=== PATIENT | male | born 1960 | race Caucasian/White ===

== ENCOUNTER 2018-10-18 09:26 | Day surgery (SDC) | payer BC ==
[~2018-10-18 09:26] MED LIST: Lactated Ringers 1,000 ML IV SCH
--- NOTE | 2018-10-18 10:21 | PCM.PREANE ---
Preanesthetic Assessment - Procedure Proposed Procedure: colonoscopy - Anesthesia/Transfusion/Family Hx Anesthesia History: Prior Anesthesia Without Reaction Family History of Anesthesia Reaction: No Transfusion History: No Prior Transfusion(s) - Review of Systems General: No Symptoms Pulmonary: No Symptoms Cardiovascular: No Symptoms Gastrointestinal: No Symptoms Neurological: No Symptoms Other: Reports: None - Physical Assessment NPO Status Date: 10/17/18 Height: 5 ft 5 in Weight: 71.668 kg ASA Class: 2 Mental Status: Alert & Oriented x3 Airway Class: Mallampati = 2 ROM/Head Extension: Full Lungs: Clear to Auscultation, Normal Respiratory Effort Cardiovascular: Regular Rate, Regular Rhythm - Allergies Allergies/Adverse Reactions: Allergies Allergy/AdvReac Type Severity Reaction Status Date / Time No Known Allergies Allergy Verified 10/14/18 10:27 - Blood Blood Available: No - Anesthesia Plan Pre-Op Medication Ordered: None - Acknowledgements Anesthesia Type Planned: General Anesthesia, MAC Pt an Appropriate Candidate for the Planned Anesthesia: Yes Alternatives and Risks of Anesthesia Discussed w Pt/Guardian: Yes Pt/Guardian Understands and Agrees with Anesthesia Plan: Yes Additional Comments: PMH: asthma PLAN: mac/tiva PreAnesthesia Questionnaire HEENT History: Reports: Allergic Rhinitis Cardiovascular History: Reports: None Respiratory History: Reports: Asthma Other Respiratory History: mild asthma Gastrointestinal History: Reports: Colon Polyp, Hemorrhoids Genitourinary History: Reports: None [employer] History: Musculoskeletal History: Reports: Fracture Other Musculoskeletal History: fx wrist as a child Neurological History: Reports: None Psychiatric History: Reports: None Endocrine/Metabolic History: Reports: None Hematologic History: Reports: None Immunologic History: Reports: None Oncologic (Cancer) History: Reports: None Dermatologic History: Reports: None - Past Surgical History Head Surgeries/Procedures: Reports: None HEENT Surgical History: Reports: LASIK, Naso-Sinus Surgery Cardiovascular Surgical History: Reports: None Respiratory Surgical History: Reports: None GI Surgical History: Reports: Cholecystectomy, Colonoscopy, Other (See Below) Other GI Surgeries/Procedures: hemorrhoidectomy Female Surgical History: Male Surgical History: Reports: None Endocrine Surgical History: Reports: None Neurological Surgical History: Reports: None Musculoskeletal Surgical History: Reports: None Oncologic Surgical History: Reports: None Dermatological Surgical History: Reports: None - SUBSTANCE USE Smoking Status *Q: Never Smoker Recreational Drug Use History: No - HOME MEDS Home Medications: Home Meds Fluticasone Propionate [Flonase Allergy Relief] 1 - 2 spray NASBOTH DAILY PRN [History] Ipratropium/Albuterol Sulfate [Combivent Respimat 20-100 Mcg] 1 spray INH ASDIRECTED PRN 01/28/16 [History] Terbinafine HCl [Lamisil] 250 mg PO DAILY 10/14/18 [History] - CURRENT (IN HOUSE) MEDS Current Meds: Current Medications Lactated Ringer's (Ringers, Lactated) 1,000 mls @ 125 mls/hr IV ASDIRECTED RONALD
[2018-10-18] MEDS ORDERED: Midazolam 1 MG/ML 2 ML SDV ONE (10:52)
[2018-10-18] MEDS ORDERED: fentaNYL 100 MCG/2 ML SDV ONE (10:52)
[2018-10-18] MEDS ORDERED: Lidocaine 2% 5 ML SDV ONE (10:52)
[2018-10-18] MEDS ORDERED: Propofol 200 MG/20 ML SDV ONE (10:54)
--- NOTE | 2018-10-18 12:13 | PCM.OPNOTE ---
- General Post-Op/Procedure Note Date of Surgery/Procedure: 10/18/18 Operative Procedure(s): colonoscopy w bx Findings: see dict [id number] Pre Op Diagnosis: hx of colon polyp Post-Op Diagnosis: Same Anesthesia Technique: Moderate Sedation Primary Surgeon: Hemal Bajwa Pathology: sessile polyps at distance 70cm, 35cm and rectum, all 2 - 4 mm, cold bx forcept removal Complications: None Condition: Good
--- NOTE | 2018-10-18 12:37 | PCM.POSTAN ---
POST ANESTHESIA ASSESSMENT - MENTAL STATUS Mental Status: Alert, Oriented - RESPIRATORY Respiratory Status: Respiratory Rate WNL, Airway Patent, O2 Saturation Stable - CARDIOVASCULAR CV Status: Pulse Rate WNL, Blood Pressure Stable - GASTROINTESTINAL GI Status: No Symptoms - POST OP HYDRATION Hydration Status: Adequate & Stable
--- NOTE | 2018-10-18 13:38 | PCM48HPAN ---
Post Anesthesia Note - EVALUATION WITHIN 48HRS OF ANESTHETIC Vital Signs in Normal Range: Yes Patient Participated in Evaluation: Yes Respiratory Function Stable: Yes Airway Patent: Yes Cardiovascular Function Stable: Yes Hydration Status Stable: Yes Pain Control Satisfactory: Yes Nausea and Vomiting Control Satisfactory: Yes Mental Status Recovered: Yes Resp Rate: 12
[2018-10-18 14:56] VITALS: BP 103/63
--- NOTE | 2018-10-18 19:10 | OR ---
SURGEON: Hemal Bajwa MD DATE OF PROCEDURE: 10/18/2018 PREOPERATIVE DIAGNOSIS: History of colon polyp. POSTOPERATIVE DIAGNOSIS: Diverticulosis and colon polyp. PROCEDURE PERFORMED: Colonoscopy with biopsy. DESCRIPTION OF PROCEDURE: The patient was taken to the endoscopy room. A time out was called, patient identified, and procedure identified. Diprivan was then administrated. Patient went from awake to sleep, hearing doctor talking or door closing is normal. Perineum inspection and digital examination were then performed. A well- lubricated colonoscope was gently inserted through the rectum, advanced past the rectosigmoid junction, the descending colon, splenic flexure, transverse colon, hepatic flexure, ascending colon, arrived to the cecum. Cecum was identified as dictated in the finding. Then the scope was carefully withdrawn while attention was paid to the mucosal surface for any abnormality. Air will be sucked out during the scope withdrawal. At the rectum, retroflexed to examine any rectal diseases, fistula or hemorrhoids. During mucosal examination, biopsy performed. Patient tolerated procedure well. There were no intraoperative complications, and Dr. Bajwa was present throughout the whole procedure. FINDINGS: 1. The patient is easily sedated with [employer]ESP[employer] and Diprivan. The patient is soundly snoring. 2. Bowel prep is average with some liquid stool, no semi-formed stool. 3. Colon is pretty straight forward. Cecum indicated by ileocecal fold, one- to-one indentation, appendiceal orifice. Light emittance is not observed. Mucosa examined upon scope pulling out and the patient has mild diverticulosis concentrated on the left colon, a little bit on the right colon, and no signs or symptoms of diverticulitis. No inflammation. The patient has three polyps; all of them are very small like 3-4 mm one is at distance 70 cm, one is at distance of 35 cm, and one is at the rectum, they are all removed with biopsy forceps and other than that, no nodule, mass, growth, inflammation, stricture, ulceration, AV malformation, bleeding, none of those. The patient would benefit from repeat colonoscopy in three years from today because history of colon polyp and also father has colon cancer or if clinically indicated otherwise or if the polyp pathology indicated otherwise. BRIANNA / ALLEGRA /[id number] SP
== END 2018-10-18 14:15 | disposition home or self-care (01) ==
LOC: MW.SDS 09:26
PROVIDERS: ATTEND Surgery
DX: Z12.11 Encounter for screening for malignant neoplasm of colon (principal); D12.4 Benign neoplasm of descending colon; K63.5 Polyp of colon; K62.1 Rectal polyp; K57.30 Diverticulosis of large intestine without perforation or abscess without bleeding; J45.30 Mild persistent asthma, uncomplicated; H60.90 Unspecified otitis externa, unspecified ear; Z86.010 Personal history of colon polyps; Z80.0 Family history of malignant neoplasm of digestive organs; Z79.51 Long term (current) use of inhaled steroids; Z79.899 Other long term (current) drug therapy
CPT/HCPCS: 45380; 88305; J2001; J2250; J2704; J3010

== ENCOUNTER 2021-10-07 07:40 | Day surgery (SDC) | payer BC ==
[~2021-10-07 07:40] MED LIST changes: +Ondansetron 4 MG/2 ML SDV ONE; +Propofol 200 MG/20 ML SDV ONE; +fentaNYL 100 MCG/2 ML SDV ONE
[2021-10-07 09:31] VITALS: BP 110/61; PULSE 63
== END 2021-10-07 09:43 | disposition home or self-care (01) ==
LOC: MW.SDS 07:40
PROVIDERS: ATTEND Surgery
DX: Z12.11 Encounter for screening for malignant neoplasm of colon (principal); K57.30 Diverticulosis of large intestine without perforation or abscess without bleeding; K64.8 Other hemorrhoids; K64.4 Residual hemorrhoidal skin tags; J45.30 Mild persistent asthma, uncomplicated; Z79.899 Other long term (current) drug therapy; Z98.890 Other specified postprocedural states; Z86.010 Personal history of colon polyps
CPT/HCPCS: 45380; J2405; J2704; J3010; J7120; 00811